=== PATIENT | female | born 1980 | race Two or more races ===

== ENCOUNTER 2017-07-22 11:53 | Outpatient (CLI) | payer OTHER | END 2017-07-22 12:07 | disposition home or self-care (01) | LOC: MAMO-SONO 11:53 | DX: Z12.31 Encounter for screening mammogram for malignant neoplasm of breast (principal) ==

== ENCOUNTER → 2020-02-29 09:16 | Outpatient (CLI) | payer OTHER | END | disposition home or self-care (01) | LOC: LAB 09:16 | PROVIDERS: ATTEND Obstetrics & Gynecology Maternal & Fetal Medicine | DX: E03.8 Other specified hypothyroidism (principal); D63.8 Anemia in other chronic diseases classified elsewhere; N30.90 Cystitis, unspecified without hematuria; E78.00 Pure hypercholesterolemia, unspecified; R73.09 Other abnormal glucose; M81.0 Age-related osteoporosis without current pathological fracture; N80.8 Other endometriosis ==

== ENCOUNTER 2020-02-29 10:10 | Outpatient (CLI) | payer OTHER | END 2020-02-29 10:23 | disposition home or self-care (01) | LOC: MAMO-SONO 10:10 | PROVIDERS: ATTEND Obstetrics & Gynecology Maternal & Fetal Medicine | DX: Z12.31 Encounter for screening mammogram for malignant neoplasm of breast (principal); N63.10 Unspecified lump in the right breast, unspecified quadrant; N63.20 Unspecified lump in the left breast, unspecified quadrant; N64.4 Mastodynia; N60.11 Diffuse cystic mastopathy of right breast ==